=== PATIENT | female | born 1995 | race Caucasian/White ===

== ENCOUNTER 2020-06-18 05:46 | Inpatient (IN) | payer OTHER ==
[~2020-06-18] VITALS: Ht 154.9 cm; Wt 91.2 kg
[2020-06-18 06:42] LABS: HEMOGLOBIN 11.6 gm/dl (12.3-15.3); RED BLOOD COUNT 4.36 M/UL (4.00-5.10)
[2020-06-18] MEDS ORDERED: IBUPROFEN600 MG PO (14:16)
[2020-06-18] MEDS ORDERED: DOCUSATE SODIU100 MG PO (14:16)
[2020-06-19 06:11] LABS: HEMOGLOBIN 11.7 gm/dl (12.3-15.3)
== END 2020-06-19 17:40 | disposition home or self-care (01) | DRG 806 ==
LOC: OB 05:46
PROVIDERS: ADMIT Obstetrics & Gynecology
PROC: 10E0XZZ Delivery of Products of Conception, External Approach (ICD-10-PCS; principal; 2020-06-19)
PROC: 10907ZC Drainage of Amniotic Fluid, Therapeutic from Products of Conception, Via Natural or Artificial Opening (ICD-10-PCS; principal; 2020-06-19)
PROC: 0HQ9XZZ Repair Perineum Skin, External Approach (ICD-10-PCS; principal; 2020-06-19)
PROC: 10H07YZ Insertion of Other Device into Products of Conception, Via Natural or Artificial Opening (ICD-10-PCS; principal; 2020-06-19)
DX: O70.0 First degree perineal laceration during delivery (principal); O98.32 Other infections with a predominantly sexual mode of transmission complicating childbirth; Z37.0 Single live birth; Z3A.39 39 weeks gestation of pregnancy; A56.8 Sexually transmitted chlamydial infection of other sites; Z82.49 Family history of ischemic heart disease and other diseases of the circulatory system
CPT/HCPCS: 36415; 51702; 81001; 85014; 85018; 85025; 90715; J2590; J7120